=== PATIENT | male | born 1950 | race Caucasian/White ===

== ENCOUNTER 2022-07-29 21:51 | Emergency (ER) | payer OTHER, SELFPAY ==
[2022-07-29 21:59] VITALS: PULSE 60; RESP 14; O2SAT 92
[2022-07-29 22:00] VITALS: BP 124/75; PULSE 58; RESP 12; O2SAT 97
--- NOTE | 2022-07-29 22:00 | DI.RAD.S_ITS ---
PROCEDURE: XR CHEST 1V INDICATIONS: fall down stairs TECHNIQUE: One view of the chest was acquired. COMPARISON: None. FINDINGS: Surgical changes and devices: None. Lungs and pleura: Lungs are clear. No pleural effusions or pneumothorax. Mediastinum: Mediastinal contours appear normal. Heart size is normal. Bones and chest wall: No displaced fractures identified. No suspicious bony lesions. Overlying soft tissues appear unremarkable. IMPRESSION: 1. No definite acute traumatic abnormality. Dictated by: Faheem Gray M.D. on 07/29/2022 at 23:19 Approved by: Faheem Gray M.D. on 07/29/2022 at 23:19
--- NOTE | 2022-07-29 22:00 | ED_ITS ---
HPI - General Adult General Chief complaint: Fall Stated complaint: Fell downstairs- hit head- ETOH Time Seen by Provider: 07/29/22 22:00 Source: patient, family and EMS Mode of arrival: EMS Limitations: no limitations History of Present Illness HPI narrative: Patient is a 71-year-old male. Not on anticoagulation who was brought in by EMS for evaluation after is reported that he fell down approximately 10 stairs. He is with his son at the time. He states that his son did not specifically see him fall although he hurt his mother yell out that the patient was going to fall. Apparently he was unconscious for approximately 2 minutes. The son thought that he was not breathing. They contacted 911. There was a period of time where the son was performing CPR on the patient. The patient then seemed to recover consciousness. Was back to his baseline for the family. When EMS arrived patient was ambulatory. Moving all extremities. Was not having any complaints. Was somewhat upset about having to come to the emergency department. Upon arrival patient has no specific complaints. No neck pain. No arm pain pelvic pain belly pain extremity pain. Review of Systems Review of Systems ROS Unobtainable: All systems reviewed & are unremarkable except as noted in HPI and below Patient History Social History Smoking Status: Never smoker Exam Initial Vital Signs Initial Vital Signs: Vital Signs Pulse Rate 60 07/29/22 21:59 Respiratory Rate 14 07/29/22 21:59 Pulse Oximetry 92 07/29/22 21:59 Const General: cooperative, comfortable and No ill appearing HENMT Head: normal to inspection and normocephalic Face and sinus: normal facial exam Chest Chest: No crepitus Resp Effort & Inspection: normal respiratory effort Cardio Rate: regular rate GI Inspection: normal to inspection and non-distended Palpation: soft and No tender Back/Spine/Pelvis Cervical Spine: No collar present and No cervical spasm Skin General: no rashes or lesions noted Neuro General: patient alert, patient awake and moves all extremities Extrem General: normal to inspection and capillary refill normal Psych Appearance: grossly normal, well kempt and not disheveled Course Orders Ordered: ED Orders 07/29/22 22:00 CT cervical spine wo con Stat CT head/brain wo con Stat XR chest 1V Stat 07/29/22 22:24 Basic Metabolic Panel Stat Complete Blood Count AUTO DIFF Stat Discontinued Medications Ondansetron HCl (Ondansetron 4 Mg/2 Ml Inj) 4 mg IV NOW ONE Stop: 07/29/22 22:16 Last Admin: 07/29/22 22:26 Dose: 4 mg Documented By: AMADA Vital Signs Vital signs: Vital Signs - 8 hr 07/29/22 22:04 07/29/22 21:59 07/29/22 22:00 Temperature 96.6 F L Pulse Rate 60 60 Respiratory Rate 20 14 Blood Pressure 124/75 124/75 Pulse Oximetry 96 92 Oxygen Delivery Method Room Air 07/29/22 22:00 07/29/22 22:30 07/29/22 23:00 Temperature Pulse Rate 58 L 59 L 58 L Respiratory Rate 12 20 18 Blood Pressure Pulse Oximetry 97 96 95 Oxygen Delivery Method 07/29/22 23:30 07/30/22 00:00 07/30/22 00:30 Temperature Pulse Rate 58 L 59 L 58 L Respiratory Rate 25 H Blood Pressure Pulse Oximetry 95 96 95 Oxygen Delivery Method 07/30/22 01:00 Temperature Pulse Rate 63 Respiratory Rate Blood Pressure Pulse Oximetry 94 Oxygen Delivery Method Medical Decision Making Lab Data Lab results reviewed: Yes I reviewed the patient's lab results. 07/29/22 22:24 07/29/22 22:24 Labs: Lab Results 07/29/22 07/29/22 Range/Units 22:24 22:24 WBC 9.4 (4.5-11.0) X10^3/uL RBC 4.99 (4.5-5.9) X10^6/uL Hgb 15.5 (13.5-17.5) g/dL Hct 44.8 (41-53) % MCV 89.7 (80-100) fL MCH 31.0 (26-34) PG MCHC 34.6 (30-36) % RDW 14.1 (11.6-14.8) % Plt Count 217 (150-400) X10^3/uL Neut % (Auto) 38.3 L (50-75) % Lymph % (Auto) 44.3 H (25-40) % Carlisle % (Auto) 12.3 (3-14) % Eos % (Auto) 4.2 H (2-4) % Baso % (Auto) 0.9 (0-2) % Neut # (Auto) 3600 (5377-3695) /uL Lymph # (Auto) 4200 (8602-5643) /uL [place] # (Auto) 1200 H (0-900) /uL Eos # (Auto) 400 (0-450) /uL Baso # (Auto) 100 (0-100) /uL Sodium 140 (137-145) mmol/L Potassium 3.9 (3.4-5.1) mmol/L Chloride 105 (98-107) mmol/L Carbon Dioxide 21 L (22-32) mmol/L BUN 15 (9-20) mg/dL Creatinine 0.80 (0.66-1.25) mg/dL Estimated GFR > 60 (>60) mL/min BUN/Creatinine Ratio 18.8 (6-22) Glucose 105 (80-110) mg/dL Calcium 8.7 (8.4-10.2) mg/dL Imaging Data CT - cervical spine: Radiologist's Impression: PROCEDURE:? CT CERVICAL SPINE WO CON ? INDICATIONS:? fall down stairs ? TECHNIQUE:? Noncontrast 3 mm thick sections acquired from the skull base to the T4 level.? Sagittal and coronal reformats were then constructed.? For radiation dose reduction, the following was used:? automated exposure control, adjustment of mA and/or kV according to patient size.? ? COMPARISON:? None. ? FINDINGS:? Image quality:? Excellent.? ? Bones:? No fractures or subluxation.? There is multilevel degenerative disc disease and facet joint arthropathy.? Visualized superior ribs are intact.? ? Soft tissues:? Prevertebral soft tissues are normal in thickness.? No paravertebral hematomas.? No apical pneumothoraces.? There is an indistinct left thyroid nodu le measuring up to 1.1 cm. ? ? IMPRESSION:? ? 1. No fracture or subluxation. Chest x-ray: Radiologist's Impression: PROCEDURE:? XR CHEST 1V ? INDICATIONS:? fall down stairs ? TECHNIQUE:? One view of the chest was acquired.? ? COMPARISON:? None. ? FINDINGS:? ? Surgical changes and devices:? None.? ? Lungs and pleura:? Lungs are clear.? No pleural effusions or pneumothorax.? ? Mediastinum:? Mediastinal contours appear normal.? Heart size is normal.? ? Bones and chest wall:? No displaced fractures identified.? No suspicious bony le sions.? Overlying soft tissues appear unremarkable.? ? IMPRESSION:? ? 1.? No definite acute traumatic abnormality. CT scan - head: Radiologist's Impression: PROCEDURE:? CT HEAD/BRAIN WO CON ? INDICATIONS:? fall down stairs with LOC ? TECHNIQUE:? Noncontrast 4.5 mm thick angled axial sections acquired from the foramen magnum to the vertex, with coronal and sagittal reformats.? For radiation dose reduction, the following was used:? automated exposure control, adjustment of mA and/or kV according to patient size.? ? COMPARISON:? None. ? FINDINGS:? Image quality:? Excellent.? ? CSF spaces:? Basal cisterns are patent.? No extra-axial fluid collections.? There is mild cerebral volume loss, with resultant ventricular and sulcal prominence.? ? Brain:? No intracranial hemorrhage, mass, or mass effect.? There are subcortical, periventricular and deep white matter hypodensities consistent with mild chronic small vessel ischemic changes.? The harrison-white matter junction appears preserved.? There is intracranial internal carotid artery atherosclerosis.? ? Skull and face:? Calvarium and visualized facial bones appear intact, without suspicious lesions.? ? Sinuses:? Visualized sinuses demonstrate mucosal thickening within the bilateral ethmoid and left maxillary sinuses.? An air-fluid level within the left maxillary sinus is suggestive of acute sinusitis.? Mastoid air cells are clear. ? IMPRESSION:? ? 1. No acute intracranial abnormality. ? 2. Mild cerebral volume loss and chronic white matter small vessel ischemic changes. ? 3. Sinus mucosal disease with an air-fluid level in the left maxillary sinus suggestive of acute sinusitis.? No associated sinus wall fracture identified.? Recommend correlation clinically.? MDM Narrative Medical decision making narrative: Upon arrival patient was alert oriented x3 and did not have any specific complaints. A CT scan of his head and neck are unremarkable. Chest x-ray was added because of the chest compressions that he received by family members. He is no abdominal pain. No bruising. Is ambulatory. When he was in the CT scanner he did have a period of vomiting which resolved with medication. Rec eived fluids. Patient has signs and symptoms of a concussion what is not surprising given his presentation. I recommended that we observe the patient here in the emergency department for a period of time. Family and patient were in agreement with this. Patient slept without difficulty. Walked to the bathroom without difficulty. Was at baseline mental status. Tolerated oral intake. Will discharge patient home. He was given return precautions. He expressed understanding and agreement. Discharge Plan Departure Patient Disposition: Home Clinical Impression: Concussion, Closed head injury Instructions: DI for Concussion Activity Restrictions/Additional Instructions: You can eat like normal and sleep like normal. Continue to take all of your medications as directed. I suspect that you will be sore over the next couple days however if you develop any new specific discomfort please return to the emergency department. Contact your primary doctor for follow-up. Stand Alone Forms: Patient Portal/API
--- NOTE | 2022-07-29 22:00 | DI.CT.S_ITS ---
PROCEDURE: CT CERVICAL SPINE WO CON INDICATIONS: fall down stairs TECHNIQUE: Noncontrast 3 mm thick sections acquired from the skull base to the T4 level. Sagittal and coronal reformats were then constructed. For radiation dose reduction, the following was used: automated exposure control, adjustment of mA and/or kV according to patient size. COMPARISON: None. FINDINGS: Image quality: Excellent. Bones: No fractures or subluxation. There is multilevel degenerative disc disease and facet joint arthropathy. Visualized superior ribs are intact. Soft tissues: Prevertebral soft tissues are normal in thickness. No paravertebral hematomas. No apical pneumothoraces. There is an indistinct left thyroid nodule measuring up to 1.1 cm. IMPRESSION: 1. No fracture or subluxation. Dictated by: Faheem Gray M.D. on 07/29/2022 at 23:17 Approved by: Faheem Gray M.D. on 07/29/2022 at 23:19
--- NOTE | 2022-07-29 22:00 | DI.CT.S_ITS ---
PROCEDURE: CT HEAD/BRAIN WO CON INDICATIONS: fall down stairs with LOC TECHNIQUE: Noncontrast 4.5 mm thick angled axial sections acquired from the foramen magnum to the vertex, with coronal and sagittal reformats. For radiation dose reduction, the following was used: automated exposure control, adjustment of mA and/or kV according to patient size. COMPARISON: None. FINDINGS: Image quality: Excellent. CSF spaces: Basal cisterns are patent. No extra-axial fluid collections. There is mild cerebral volume loss, with resultant ventricular and sulcal prominence. Brain: No intracranial hemorrhage, mass, or mass effect. There are subcortical, periventricular and deep white matter hypodensities consistent with mild chronic small vessel ischemic changes. The harrison-white matter junction appears preserved. There is intracranial internal carotid artery atherosclerosis. Skull and face: Calvarium and visualized facial bones appear intact, without suspicious lesions. Sinuses: Visualized sinuses demonstrate mucosal thickening within the bilateral ethmoid and left maxillary sinuses. An air-fluid level within the left maxillary sinus is suggestive of acute sinusitis. Mastoid air cells are clear. IMPRESSION: 1. No acute intracranial abnormality. 2. Mild cerebral volume loss and chronic white matter small vessel ischemic changes. 3. Sinus mucosal disease with an air-fluid level in the left maxillary sinus suggestive of acute sinusitis. No associated sinus wall fracture identified. Recommend correlation clinically. Dictated by: Faheem Gray M.D. on 07/29/2022 at 23:14 Approved by: Faheem Gray M.D. on 07/29/2022 at 23:17
[2022-07-29 22:04] VITALS: BP 124/75; PULSE 60; RESP 20; TEMP 35.9; O2SAT 96; BMI 26.9
[2022-07-29] MEDS: ONDANSETRON 4 MG/2 ML INJ IV (22:26)
[2022-07-29 22:30] VITALS: PULSE 59; RESP 20; O2SAT 96
[2022-07-29 23:00] VITALS: PULSE 58; RESP 18; O2SAT 95
[2022-07-29 23:29] LABS: Add Manual Diff / Slide Review NO; Basophils Absolute Auto 100 /uL (0-100); Basophils Percent Auto 0.9 % (0-2); Eosinophils Absolute Auto 400 /uL (0-450); Eosinophils Percent Auto 4.2 % (2-4); Hematocrit 44.8 % (41-53); Hemoglobin 15.5 g/dL (13.5-17.5); Lymphocytes Absolute Auto 4200 /uL (1100-4500); Lymphocytes Percent Auto 44.3 % (25-40); Mean Corpuscular HGB Conc 34.6 % (30-36); Mean Corpuscular Volume 89.7 fL (80-100); Monocytes Absolute Auto 1200 /uL (0-900); Monocytes Percent Auto 12.3 % (3-14); Neutrophils Absolute Auto 3600 /uL (1500-7000); Neutrophils Percent Auto 38.3 % (50-75); Platelet Count 217 X10^3/uL (150-400); Red Blood Cell Count 4.99 X10^6/uL (4.5-5.9); Red Cell Distribution Width 14.1 % (11.6-14.8); White Blood Cell Count 9.4 X10^3/uL (4.5-11.0)
[2022-07-29 23:30] VITALS: PULSE 58; RESP 25; O2SAT 95
[2022-07-29 23:37] LABS: BUN Creatinine Ratio 18.8 (6-22); Blood Urea Nitrogen 15 mg/dL (9-20); Calcium 8.7 mg/dL (8.4-10.2); Carbon Dioxide 21 mmol/L (22-32); Chloride 105 mmol/L (98-107); Estimated Glomerular Filt Rate > 60 mL/min (>60); Glucose 105 mg/dL (80-110); HEMOLYSIS < 15 (0-50); Potassium 3.9 mmol/L (3.4-5.1); Sodium 140 mmol/L (137-145)
[2022-07-30] VITALS (10 sets, daily range): BP systolic 123–142; BP diastolic 65–67; PULSE 58–68; RESP 16; TEMP 36.7; O2SAT 94–97
== END 2022-07-30 04:31 | disposition home or self-care (01) ==
PROVIDERS: Emergency Provider Emergency Medicine
DX: S06.0X0A Concussion without loss of consciousness, initial encounter (principal); W10.9XXA Fall (on) (from) unspecified stairs and steps, initial encounter
CPT/HCPCS: 36415; 70450; 71045; 72125; 80048; 85025; 96374; 99284; J2405